=== PATIENT | female | born 1980 | race Caucasian/White ===

== ENCOUNTER 2021-09-19 05:19 | Emergency (ER) | payer BC, SELFPAY ==
[2021-09-19 05:31] LABS: Microscopic, Urine URINE MICROSCOPIC (MICROSCOPIC)
[2021-09-19 05:33] VITALS: BP 0/0; PULSE 0; RESP 0; TEMP -17.7; TEMP 0
[2021-09-19 05:34] LABS: Blood, Urine 3+ (Negative); Color,Urine YELLOW (Yellow); Glucose,Urine (UA) Negative (Negative); Ketones,Urine 1+ (Negative); Leukocyte Esterase,Urine Negative (Negative); Nitrate,Urine Negative (Negative); PH,Urine 5.5 (5.0-8.5); Protein,Urine 1+ (Negative); Specific Gravity, Urine >= 1.030 (1.005-1.030); Urobilinogen,Urine 0.2 EU/dl (0.2)
[2021-09-19 05:41] LABS: Appearance,Urine Cloudy (Clear); Bilirubin,Urine Negative (Negative)
[2021-09-19 05:46] LABS: Bacteria,Urine 1+ /lpf; RBC,Urine 20-50 #/hpf (0-3); WBC,Urine Occasional #/hpf (0-3)
[2021-09-19 05:47] LABS: Mucus,Urine Trace /lpf
== END 2021-09-19 05:39 | disposition left against medical advice (07) ==
LOC: ER 05:38
PROVIDERS: Emergency Provider Emergency Medicine; PCP Family Medicine
DX: N23 Unspecified renal colic (principal); Z53.21 Procedure and treatment not carried out due to patient leaving prior to being seen by health care provider
CPT/HCPCS: 81001; 99211